=== PATIENT | male | born 1930 | race Caucasian/White ===

== ENCOUNTER → 2016-11-04 | Outpatient (CLI) | payer MEDICARE, BC ==
[~2016-11-04] MED LIST: ASPI-110 PO; CENTTAB PO; COQ-30CA2 PO; HYDR-3516 PO; ISOS30TA3 PO; METO50TA11 PO; PANT40TA3 PO; PROB1CHW7 PO; ROSU10 PO; VITA100021 SL
[2016-11-04 09:29] LABS: AUTOMATED NEUTROPHIL # 3.3 TH/MM3 (1.8-7.7); BASOPHIL # 0.1 TH/MM3 (0-0.2); BASOPHIL % 0.7 % (0.0-2.0); EOSINOPHIL # 0.1 TH/MM3 (0-0.4); EOSINOPHIL % 1.6 % (0.0-4.0); HEMATOCRIT 39.6 % (39.0-51.0); HEMO FLAGS DIFF FINAL; LYMPH % 38.4 % (9.0-44.0); LYMPHOCYTE # 2.7 TH/MM3 (1.0-4.8); MEAN CELL VOLUME 88.4 FL (80.0-100.0); MEAN CORPUSCULAR HEMOGLOBIN 29.2 PG (27.0-34.0); MONO % 12.6 % (0.0-8.0); NEUT % 46.7 % (16.0-70.0); PLATELET COUNT 145 TH/MM3 (150-450); RED BLOOD COUNT 4.48 MIL/MM3 (4.50-5.90); RED CELL DISTRIBUTION WIDTH 13.8 % (11.6-17.2); WHITE BLOOD COUNT 7.1 TH/MM3 (4.0-11.0)
[2016-11-04 10:18] LABS: ALKALINE PHOSPHATASE 67 U/L (45-117); ALT (GPT) 28 U/L (12-78); ANION GAP 9 MEQ/L (5-15); AST (GOT) 22 U/L (15-37); BICARBONATE 26.1 MEQ/L (21.0-32.0); BLOOD UREA NITROGEN 20 MG/DL (7-18); CHLORIDE 106 MEQ/L (98-107); GLOMERULAR FILTRATION RATE 71 ML/MIN (>89); GLUCOSE,FASTING 94 MG/DL (74-99); HDL CHOLESTEROL 33.2 MG/DL (40.0-60.0); LDL CHOLESTEROL 82 MG/DL (0-99); POTASSIUM 4.1 MEQ/L (3.5-5.1); SODIUM (NA) 141 MEQ/L (136-145); TOTAL BILIRUBIN ADULT 0.5 MG/DL (0.2-1.0)
== END ==
LOC: PLAB 07:21
PROVIDERS: ATTEND Family Medicine
DX: E78.00 Pure hypercholesterolemia, unspecified (principal)
CPT/HCPCS: 36415; 80053; 80061; 84443; 85025

== ENCOUNTER → 2017-05-22 | Outpatient (CLI) | payer MEDICARE, BC ==
[~2017-05-22] MED LIST changes: -ASPI-110 PO; +ASPI1TAB57 PO; +METO1TAB9 PO; -METO50TA11 PO; -VITA100021 SL
[2017-05-22 09:48] LABS: BLOOD, URINE NEG (NEG); GLUCOSE,URINE NEG (NEG); HYALINE CAST, URINE 1 /lpf (RARE); KETONE, URINE NEG (NEG); MUCUS URINE FEW /lpf (OCC); NITRITE,URINE NEG (NEG); PH, URINE 5.5 (5.0-8.5); URINE COLOR YELLOW (YELLW/STRAW)
[2017-05-22 09:50] LABS: BASOPHIL # 0.1 TH/MM3 (0-0.2); BASOPHIL % 0.9 % (0.0-2.0); EOSINOPHIL # 0.1 TH/MM3 (0-0.4); EOSINOPHIL % 1.9 % (0.0-4.0); HEMATOCRIT 37.8 % (39.0-51.0); HEMO FLAGS DIFF FINAL; LYMPH % 41.7 % (9.0-44.0); LYMPHOCYTE # 2.8 TH/MM3 (1.0-4.8); MEAN CELL VOLUME 90.7 FL (80.0-100.0); MEAN CORPUSCULAR HEMOGLOBIN 29.6 PG (27.0-34.0); MEAN CORPUSCULAR HGB CONC 32.7 % (32.0-36.0); MONO % 10.8 % (0.0-8.0); NEUT % 44.7 % (16.0-70.0); PLATELET COUNT 155 TH/MM3 (150-450); RED BLOOD COUNT 4.17 MIL/MM3 (4.50-5.90); RED CELL DISTRIBUTION WIDTH 15.9 % (11.6-17.2); WHITE BLOOD COUNT 6.8 TH/MM3 (4.0-11.0)
[2017-05-22 10:19] LABS: ANION GAP 7 MEQ/L (5-15); AST (GOT) 25 U/L (15-37); BICARBONATE 25.6 MEQ/L (21.0-32.0); BLOOD UREA NITROGEN 18 MG/DL (7-18); CHLORIDE 108 MEQ/L (98-107); GLOMERULAR FILTRATION RATE 75 ML/MIN (>89); GLUCOSE,FASTING 86 MG/DL (74-99); POTASSIUM 3.9 MEQ/L (3.5-5.1); SODIUM (NA) 141 MEQ/L (136-145)
[2017-05-22 10:24] LABS: ALKALINE PHOSPHATASE 64 U/L (45-117); ALT (GPT) 33 U/L (12-78); LDL CHOLESTEROL 62 MG/DL (0-99); TOTAL BILIRUBIN ADULT 0.5 MG/DL (0.2-1.0)
== END ==
LOC: PLAB 07:19
PROVIDERS: ATTEND Family Medicine
DX: I25.10 Atherosclerotic heart disease of native coronary artery without angina pectoris (principal); I10 Essential (primary) hypertension; E78.00 Pure hypercholesterolemia, unspecified
CPT/HCPCS: 36415; 80053; 80061; 81001; 85025

== ENCOUNTER 2017-11-28 17:40 | Emergency (ER) | payer MEDICARE, BC ==
[~2017-11-28] VITALS: Ht 172.7 cm; Wt 77.0 kg
[~2017-11-28 17:40] MED LIST changes: +CELE100C PO; -CENTTAB PO; +MULT10CA PO; +MULT1TAB46 PO
[2017-11-28 17:55] VITALS: BP 127/57; PULSE 80; RESP 16; TEMP 97.7; O2SAT 98
--- NOTE | 2017-11-28 18:36 | PD ---
HPI Chief Complaint: Abnormal Results Time Seen by Provider: 18:04 Travel History International Travel<30 days: No Contact w/Intl Traveler<30days: No Traveled to known affect area: No History of Present Illness HPI This patient has 3 days of melena. 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 He takes a baby aspirin daily and has recently been on a Medrol Dosepak. He basically is asymptomatic expect for a bit of fatigue. He had an outpatient CBC today revealing that he was anemic. He was advised to come to the ER. Symptom severity is mild. No alleviating factors. No exacerbating factors. PFSH Past Medical History Hx Anticoagulant Therapy: Yes (ASA 81) Arthritis: Yes Autoimmune Disease: No Blood Disorders: No Anxiety: No Depression: No Heart Rhythm Problems: Yes Cancer: Yes (SKIN) Cardiovascular Problems: Yes (HTN, high chol, [place], 2 stents and 1 valve, bypass) High Cholesterol: Yes Chemotherapy: No Chest Pain: Yes Congestive Heart Failure: No Diminished Hearing: No Endocrine: No Gastrointestinal Disorders: Yes (C-DIFF) GERD: Yes Glaucoma: No Genitourinary: Yes Hepatitis: No Hiatal Hernia: No Hypertension: Yes Immune Disorder: No Implanted Vascular Access Dvce: Yes Kidney Stones: No Musculoskeletal: Yes Neurologic: No Psychiatric: No Reproductive: No Respiratory: No Myocardial Infarction: Yes Radiation Therapy: No Renal Failure: No Ulcer: Yes Past Surgical History Abdominal Surgery: Yes (HERNIA REPAIR,FISTULA REPAIR IN BLADDER AND COLON ) AICD: No Appendectomy: No Arteriovenous Shunt: No Body Medical Devices: CARDIAC STENT Cardiac Surgery: Yes (CABG, STENT TO RCA 2006, TVAR 2011) Cholecystectomy: No Ear Surgery: No Endocrine Surgery: No Eye Surgery: No Genitourinary Surgery: No Gynecologic Surgery: No Insulin Pump: No Joint Replacement: No Oral Surgery: No Pacemaker: No Thoracic Surgery: No Other Surgery: Yes (CABG 1988, INGUINAL HERNIA REPAIR 2004, STENT TO RCA ) Social History Alcohol Use: Yes (OCCASIONAL) Tobacco Use: No (Quit 1966) Substance Use: No Allergies-Medications (Allergen,Severity, Reaction): Coded Allergies: cephalexin (Unverified Allergy, Severe, C. DIFF, 11/28/17) zolpidem (Verified Allergy, Severe, Hallucinations, 11/28/17) Reported Meds & Prescriptions Reported Meds & Active Scripts Active Reported Preservision Areds 2 Softgel (Vit C/E/Zn/Coppr/Lutein/Zeaxan) 250-200-40 Capsule 1 Cap PO DAILY Celebrex (Celecoxib) 100 Mg Cap 100 Mg PO BID Multi-Vitamin Daily (Multivitamin) 1 Each Tablet PO DAILY Hydrocodone-Acetaminophen 5-325 mg Tab 1 Tab PO Q6H PRN Crestor (Rosuvastatin Calcium) 10 Mg Tab 10 Mg PO DAILY Coq-10 (Coenzyme Q10 (Ubidecarenone)) 30 Mg Cap 1 Cap PO DAILY Dialyvite Chewable Probiotic (Probiotic) 1 Chw Chw 1 Tab PO DIRECTED Aspirin 81 (Aspirin) 81 Mg Tabdr 81 Mg PO DAILY Isosorbide Mononitrate ER (Isosorbide Mononitrate) 30 Mg Ann 30 Mg PO DAILY Metoprolol Succinate ER 24 HR (Metoprolol Succinate) 50 Mg Tab 25 Mg PO HS Pantoprazole (Pantoprazole Sodium) 40 Mg Tab 40 Mg PO DAILY Review of Systems General / Constitutional: No: Fever Eyes: No: Visual changes HENT: No: Headaches Cardiovascular: No: Chest Pain or Discomfort Respiratory: No: Shortness of Breath Gastrointestinal: No: Abdominal Pain Genitourinary: No: Dysuria Musculoskeletal: No: Pain Skin: No Rash Neurologic: No: Weakness Psychiatric: No: Depression Endocrine: No: Polydipsia Hematologic/Lymphatic: No: Easy Bruising Physical Exam Narrative GENERAL: Well-nourished, well-developed patient in no apparent distress. SKIN: Focused skin assessment reveals no rash and nodules. Skin is Warm and dry. HEAD: Atraumatic. Normocephalic. EYES: Pupils equal and round. No scleral icterus. No injection or drainage. ENT: No nasal bleeding or discharge. Mucous membranes pink and moist. NECK: Trachea midline. No JVD. CARDIOVASCULAR: Regular rate and rhythm. No murmur appreciated. RESPIRATORY: No accessory muscle use. Clear to auscultation. Breath sounds equal bilaterally. GASTROINTESTINAL: Abdomen soft, non-tender, nondistended. Hepatic and splenic margins not palpable. MUSCULOSKELETAL: No obvious deformities. No clubbing. No cyanosis. No edema. NEUROLOGICAL: Awake and alert. No obvious cranial nerve deficits. Motor grossly within normal limits. Normal speech. PSYCHIATRIC: Appropriate mood and affect; insight and judgment normal. Rectal: Normal tone, no mass. Dark brown stool is Hemoccult positive Data Data Last Documented VS Vital Signs Date Time Temp Pulse Resp B/P (MAP) Pulse Ox O2 Delivery O2 Flow Rate FiO2 11/28/17 17:55 97.7 80 16 127/57 (80) 98 MDM Medical Decision Making Medical Screen Exam Complete: Yes Emergency Medical Condition: Yes Medical Record Reviewed: Yes Differential Diagnosis Peptic ulcer disease, esophagitis, gastric tumor Narrative Course I have reviewed the patient's electronic medical record. I reviewed his lab studies as an outpatient from today. Hemoglobin and was 9.4 The prior one was 12 Had a lengthy discussion with the patient. He understands that he has a GI bleed, I suspect upper GI bleed. Likely ulcer disease exacerbated by aspirin and steroid therapy. He is minimally symptomatic. I suggested hospitalization given that he will not be able to get any follow-up for the next few days over the weekend and he has dropped his hemoglobin from prior. However, he points out that he feels well and would rather go home and does not want to stay in the hospital. I have advised him to return if he worsens. He plans on calling his physician Friday to get a GI referral. He does not have a current GI physician. He should stop both aspirin and steroid therapy. I suggested he start daily Prilosec. If he changes his mind he should come back. [facility] Point of Care Internal Pos. & Neg. Controls: Passed Fecal Specimen Occult Blood: Positive Diagnosis Primary Impression: GI bleeding Qualified Codes: K92.2 - Gastrointestinal hemorrhage, unspecified Patient Instructions: General Instructions Departure Forms: Tests/Procedures Additional Instructions: Follow-up with GI physician and primary care physician Stop aspirin and steroid therapy Start daily Prilosec which is [id number] Return if you worsen or change your mind about hospitalization Med/Other Pt SpecificInfo: Other Disposition: 01 DISCHARGE HOME Condition: Stable Hugh Curry MD November 28, 2017 18:35
== END 2017-11-28 19:00 | disposition home or self-care (01) ==
LOC: PHED 17:40
DX: K92.2 Gastrointestinal hemorrhage, unspecified (principal); R53.83 Other fatigue; D64.9 Anemia, unspecified; I10 Essential (primary) hypertension; K21.9 Gastro-esophageal reflux disease without esophagitis; E78.00 Pure hypercholesterolemia, unspecified; I25.2 Old myocardial infarction; Z79.82 Long term (current) use of aspirin; Z87.39 Personal history of other diseases of the musculoskeletal system and connective tissue; Z86.79 Personal history of other diseases of the circulatory system; Z87.19 Personal history of other diseases of the digestive system; Z87.448 Personal history of other diseases of urinary system
CPT/HCPCS: 99282

== ENCOUNTER → 2017-11-28 | Outpatient (CLI) | DX: K92.2 Gastrointestinal hemorrhage, unspecified (principal) ==

== ENCOUNTER → 2017-12-18 | Outpatient (CLI) | payer MEDICARE, BC ==
[~2017-12-18] MED LIST changes: -CELE100C PO; -PROB1CHW7 PO; +PROBCAP28 PO
[2017-12-18 14:29] LABS: HEMATOCRIT 29.6 % (39.0-51.0); HEMOGLOBIN 9.7 GM/DL (13.0-17.0)
== END ==
LOC: PLAB 09:22
PROVIDERS: ATTEND Physician Assistant Medical
DX: D62 Acute posthemorrhagic anemia (principal)
CPT/HCPCS: 36415; 85014; 85018